=== PATIENT | male | born 1970 | race Caucasian/White ===

== ENCOUNTER 2017-03-04 12:20 | Emergency (ER) | payer SELFPAY ==
[~2017-03-04] VITALS: Ht 175.3 cm; Wt 91.8 kg
[2017-03-04 12:39] VITALS: TEMP 36.8; Ht 175.3 cm; Wt 91.8 kg
[2017-03-04] MEDS ORDERED: CEPH500C PO (14:02)
[2017-03-04] MEDS ORDERED: [UNRECOGNIZED DRUG - CODE] TOP (14:02)
--- NOTE | 2017-03-04 14:04 | EMERGENCY ROOM VISIT NOTE ---
ED Visit Note First contact with patient: 13:41 CHIEF COMPLAINT: Rash HISTORY OF PRESENT ILLNESS: This 46-year-old male patient presents to the emergency department ambulatory complaining of a rash to the scalp which started exclude weeks ago. The patient denies fever, chills, nausea, or loss of appetite. They deny any URI symptoms. The patient has tried steroid and fungal topicals and medicated shampoo but feels as though it is worsening. The patient states the rash is itchy and rates the discomfort as 0/10. No change in food, soap, detergents, or other environmental factors. No new medications. No weakness or numbness. The patient was told to see urgent care to get a referral to dermatology. He did this but dermatology cannot see him for months. He states that he notices some oozing from the lesions on the scalp. REVIEW OF SYSTEMS: A 6 system review of systems was completed with positives and pertinent negatives listed in the HPI. ALLERGIES: No known drug allergies MEDICATIONS: None PMH: None SOCIAL HISTORY: The patient is and lives locally PHYSICAL EXAM: Vital Signs: Reviewed Nurse's notes, vital signs stable. GENERAL : This is a 46-year-old male, in no acute distress, well-developed, well- nourished. SKIN: There are raised, dry, white, flaking lesions to the scalp. There is some discharge. There is no fluctuance. Capillary refill less than 2 seconds. EMERGENCY DEPARTMENT COURSE: The patient was seen and examined. He appears to have seborrheic capitis. The patient should follow-up with dermatology. He may have some secondary infection. He'll be placed on Keflex. He is advised to try baby oil at night. He will be given a prescription for clobetasol solution. He should return with any worsening symptoms. Current/Historical Medications Scheduled Cephalexin Monohydrate (Keflex), 500 MG PO TID Clobetasol Propionate (Cormax Scalp Application), 1 APPLN TOP DIRECTED Allergies Coded Allergies: No Known Allergies (Unverified , 03/04/17) Vital Signs Date Time Temp Pulse Resp B/P (MAP) Pulse Ox O2 Delivery O2 Flow Rate FiO2 03/04/17 14:09 66 116/84 97 Room Air 03/04/17 12:39 36.8 81 16 119/79 97 Room Air Departure Information Impression Primary Impression: Seborrhea capitis Dispostion Home / Self-Care Condition GOOD Prescriptions Cephalexin Monohydrate (Keflex) 500 Mg Cap 500 MG PO TID for 7 Days, #21 CAP Prov: Jessica Barker PA-C 03/04/17 Clobetasol Propionate (CORMAX SCALP APPLICATION) 0.05 % Samantha 1 APPLN TOP DIRECTED, #1 BTL 2 Refills Apply to the scalp after bathing as needed Prov: Jessica Barker PA-C 03/04/17 Referrals No Doctor, Assigned (PCP) Alina Lee MD Patient Instructions My [facility], Seborrheic Dermatitis Additional Instructions Use a mild shampoo such as Dove Apply baby oil liberally to the scalp at bedtime and leave on overnight. Wash in the morning with a mild shampoo. This will help to gently remove the scales. You may do this several times a week or as needed. Apply the clobetasol to the scalp after bathing as needed. Keflex as prescribed, until finished to treat potential secondary bacterial infection Follow-up with dermatology for definitive management Return with any worsening symptoms
[2017-03-04 14:09] VITALS: BP 116/84; PULSE 66; O2SAT 97
== END 2017-03-04 14:15 | disposition home or self-care (01) ==
LOC: C.EDB 12:22 → C.EDD 14:15
DX: L21.0 Seborrhea capitis (principal)

== ENCOUNTER 2017-06-21 19:28 | Emergency (ER) | payer OTHER ==
[~2017-06-21] VITALS: Ht 172.7 cm; Wt 91.2 kg
[~2017-06-21 19:28] MED LIST: [UNRECOGNIZED DRUG - CODE] TOP
[2017-06-21 19:39] VITALS: TEMP 37.1; Ht 172.7 cm; Wt 91.2 kg
[2017-06-21] MEDS ORDERED: SODIUM CHLORIDE 0.9% 1000ML 1,000 ML IV STA (19:53)
[2017-06-21] MEDS ORDERED: IBUP-1050 PO (20:16)
[2017-06-21 20:24] LABS: BASO % 0.1 %; BASO ABS # 0.01 K/uL (0-0.2); EOS % 1.9 %; EOS ABS # 0.19 K/uL (0-0.5); HEMOGLOBIN 16.5 g/dL (14.0-18.0); IG# 0.03 K/uL (0.00-0.02); LYMPH % 16.8 %; LYMPH ABS # 1.64 K/uL (1.2-3.4); MEAN CELL VOLUME 91.5 fL (80-100); MEAN CORPUSCULAR HEMOGLOBIN 33.5 pg (25-34); MEAN CORPUSCULAR HGB CONC 36.7 g/dl (32-36); MEAN PLATELET VOLUME 9.1 fL (7.4-10.4); MONO % 7.9 %; MONO ABS # 0.77 K/uL (0.11-0.59); NEUT ABS # 7.14 K/uL (1.4-6.5); PLATELET COUNT 235 K/uL (130-400); RED CELL DISTRIBUTION WIDTH CV 12.5 % (11.5-14.5); RED CELL DISTRIBUTION WIDTH SD 42.2 fL (36.4-46.3); WHITE BLOOD COUNT 9.78 K/uL (4.8-10.8)
--- NOTE | 2017-06-21 20:28 | EMERGENCY ROOM VISIT NOTE ---
History Report prepared by Teddy: Juan Álvarez Under the Supervision of: Alpesh RodriguezO. First contact with patient: 19:44 Chief Complaint: ABDOMINAL PAIN Stated Complaint: LOWER ABDOMINAL PAIN R SIDE 5+HRS Nursing Triage Summary: Pt ambulatory to triage. Lower right abdominal pain since this morning. Denies N/V/D. History of Present Illness The patient is a 46 year old male who presents to the Emergency Room with complaints of constant right lower quadrant abdominal pain that started this morning. The patient states that the pain radiated into his groin and testicle, and he had some back pain. He reports that his urine has a more foul odor than usual. The patient notes that 45 minutes ago he took 2 ibuprofen, and this has relieved some of his pain. He states that he has never had pain like this in the past, and he never had kidney stones. The patient denies any history of an appendectomy, and he does not take any medications daily. He states that he drinks alcohol occasionally, and he does not use any tobacco. The patient has a history of mole removals, though he does not have any other medical history. He additionally notes that he has been moving around heavy stuff a lot recently. Source of History: patient Onset: this morning Position: abdomen (RLQ) Timing: constant Modifying Factors (Relieving): ibuprofen Associated Symptoms: + back pain Note: Associated symptoms: groin and testicle pain. Review of Systems See HPI for pertinent positives & negatives. A total of 10 systems reviewed and were otherwise negative. Past Medical & Surgical Surgical Problems: (1) History of removal of nevus Family History Cancer Diabetes mellitus Heart disease Hypertension Social History Smoking Status: Never Smoker Marital Status: Housing Status: lives with family Occupation Status: retired Current/Historical Medications Scheduled PRN Ibuprofen (Advil), 400 MG PO Q6 PRN for Pain Allergies Coded Allergies: No Known Allergies (Unverified , 03/04/17) Physical Exam Vital Signs Date Time Temp Pulse Resp B/P (MAP) Pulse Ox O2 Delivery O2 Flow Rate FiO2 06/21/17 21:41 85 18 99/64 98 06/21/17 20:05 84 06/21/17 19:39 37.1 93 16 117/66 97 Room Air Physical Exam GENERAL: Patient is awake, alert, and in no acute distress. Patient is resting comfortably and showing no signs of anxiety EYES: The conjunctivae are clear. The pupils are round and reactive. EARS, NOSE, MOUTH AND THROAT: The nose is without any evidence of any deformity. Mucous membranes are moist tongue is midline NECK: The neck is nontender and supple. RESPIRATORY: Normal respiratory effort is noted there is no evidence of wheezing rhonchi or rales CARDIOVASCULAR: Regular rate and rhythm noted there no murmurs rubs or gallops normal S1 normal S2 GASTROINTESTINAL: The abdomen is mildly distended but soft. Right lower quadrant tenderness to palpation. No guarding or rigidity. BACK: No midline tenderness or or step-off noted range of motion in flexion extension as well as rotation no signs of muscle spasm noted MUSCULOSKELETAL/EXTREMITIES: There is no evidence of gross deformity full range of motion is noted in the hips and shoulders SKIN: There is no obvious evidence of any rash. There are no petechiae, pallor or cyanosis noted. NEUROLOGIC: Patient is awake alert and oriented x3 Medical Decision & Procedures ER Provider Diagnostic Interpretation: Radiology results as stated below per my review and radiologist interpretation: ABDOMEN AND PELVIS CT WITHOUT CONTRAST CT DOSE: 563.21 mGy.cm HISTORY: Acute right-sided flank pain right flank pain TECHNIQUE: Multiaxial CT images of the abdomen and pelvis were performed without contrast. A dose lowering technique was utilized adhering to the principles of ALARA. COMPARISON STUDY: None. FINDINGS: Lung bases are clear. No pneumatosis or pneumoperitoneum. The imaged inferior cardiac chambers are unremarkable. Gallbladder is contracted. The liver, spleen, pancreas and adrenal glands are within normal limits. Kidneys, ureters and urinary bladder are within normal limits without calculi or obstructive uropathy identified. The aorta is normal in course and caliber. No bulky adenopathy. There is no bowel obstruction or focal bowel wall thickening identified. Small duodenal diverticulum. Small fat filled left femoral hernia. Normal appendix. Soft tissues are unremarkable. Bones appear intact. IMPRESSION: 1. No acute intra-abdominal or intrapelvic abnormality identified, specifically no renal calculi or obstructive uropathy. 2. Normal appendix. 3. No bowel obstruction or focal bowel wall thickening. Electronically signed by: Zaki Souza M.D. 06/21/2017 9:07 PM Dictated Date/Time: 06/21/2017 9:04 PM Laboratory Results 06/21/17 19:55 Red Blood Count 4.92, Mean Corpuscular Volume 91.5, Mean Corpuscular Hemoglobin 33.5, Mean Corpuscular Hemoglobin Concent 36.7, Mean Platelet Volume 9.1, Neutrophils (%) (Auto) 73.0, Lymphocytes (%) (Auto) 16.8, Monocytes (%) (Auto) 7.9, Eosinophils (%) (Auto) 1.9, Basophils (%) (Auto) 0.1, Neutrophils # (Auto) 7.14, Lymphocytes # (Auto) 1.64, Monocytes # (Auto) 0.77, Eosinophils # (Auto) 0.19, Basophils # (Auto) 0.01 06/21/17 19:55 Test 06/21/17 19:55 White Blood Count 9.78 K/uL (4.8-10.8) Red Blood Count 4.92 M/uL (4.7-6.1) Hemoglobin 16.5 g/dL (14.0-18.0) Hematocrit 45.0 % (42-52) Mean Corpuscular Volume 91.5 fL (80-100) Mean Corpuscular Hemoglobin 33.5 pg (25-34) Mean Corpuscular Hemoglobin Concent 36.7 g/dl (32-36) Platelet Count 235 K/uL (130-400) Mean Platelet Volume 9.1 fL (7.4-10.4) Neutrophils (%) (Auto) 73.0 % Lymphocytes (%) (Auto) 16.8 % Monocytes (%) (Auto) 7.9 % Eosinophils (%) (Auto) 1.9 % Basophils (%) (Auto) 0.1 % Neutrophils # (Auto) 7.14 K/uL (1.4-6.5) Lymphocytes # (Auto) 1.64 K/uL (1.2-3.4) Monocytes # (Auto) 0.77 K/uL (0.11-0.59) Eosinophils # (Auto) 0.19 K/uL (0-0.5) Basophils # (Auto) 0.01 K/uL (0-0.2) RDW Standard Deviation 42.2 fL (36.4-46.3) RDW Coefficient of Variation 12.5 % (11.5-14.5) Immature Granulocyte % (Auto) 0.3 % Immature Granulocyte # (Auto) 0.03 K/uL (0.00-0.02) Urine Color YELLOW Urine Appearance CLEAR (CLEAR) Urine pH 5.5 (4.5-7.5) Urine Specific [place] 1.034 (1.000-1.030) Urine Protein NEG (NEG) Urine Glucose (UA) NEG (NEG) Urine Ketones TRACE (NEG) Urine Occult Blood NEG (NEG) Urine Nitrite NEG (NEG) Urine Bilirubin NEG (NEG) Urine Urobilinogen NEG (NEG) Urine Leukocyte Esterase NEG (NEG) Anion Gap 6.0 mmol/L (3-11) Est Creatinine Clear Calc Drug Dose 77.8 ml/min Estimated GFR () 75.8 Estimated GFR (Non- 65.4 BUN/Creatinine Ratio 15.2 (10-20) Calcium Level 9.0 mg/dl (8.5-10.1) Total Bilirubin 0.6 mg/dl (0.2-1) Direct Bilirubin mg/dl (0-0.2) Aspartate Amino Transf (AST/SGOT) 23 U/L (15-37) Alanine Aminotransferase (ALT/SGPT) 31 U/L (12-78) Alkaline Phosphatase 74 U/L (45-117) Total Protein 8.2 gm/dl (6.4-8.2) Albumin 4.2 gm/dl (3.4-5.0) Lipase 138 U/L (73-393) Chemistry Specimen Hemolysis Laboratory results per my review. Medications Administered Medications (Trade) Dose Ordered Sig/Milly Route Start Time Stop Time Status Last Admin Dose Admin Sodium Chloride 1,000 ml @ 999 mls/hr Q1H1M STAT IV 06/21/17 19:53 06/21/17 20:53 DC 06/21/17 19:53 999 MLS/HR ED Course 1943: The patient was evaluated in room C2. A complete history and physical examination were performed. 1952: NSS 1,000 ml @ 999 mls/hr IV 2119: Upon reevaluation, the patient is doing well. I discussed the results and treatment plan with him. He verbalized agreement of the treatment plan. He was discharged home. Medical Decision Differential diagnosis: Etiologies such as appendicitis, diverticulitis, PUD, biliary pathology, UTI, pancreatitis, obstruction, mesenteric ischemia, aortic pathology, infections, inflammatory bowel disease, renal colic, as well as others were entertained. Nursing notes reviewed. The patient is a 46-year-old male who presented to the emergency department for an evaluation of right lower quadrant and right flank pain. Initially I thought the patient's history and physical exam were consistent with renal colic. The patient was treated with IV fluids in the emergency department. He did not have an acute surgical abdomen on physical exam. I discussed the patient's laboratory and radiographic studies with him. He was encouraged to rest and avoid any strenuous activity. I also encouraged him to drink plenty clear liquids and continue using Motrin and Tylenol for pain. I also encouraged him to return to the emergency Department immediately if symptoms change worsen or the need arises. Medication Reconcilliation Current Medication List: was personally reviewed by me Blood Pressure Screening Patient's blood pressure: Normal blood pressure Impression Primary Impression: Right lower quadrant abdominal pain Scribe Attestation The scribe's documentation has been prepared under my direction and personally reviewed by me in its entirety. I confirm that the note above accurately reflects all work, treatment, procedures, and medical decision making performed by me. Departure Information Dispostion Home / Self-Care Referrals No Doctor, Assigned (PCP) Forms Call Back Authorization, HOME CARE DOCUMENTATION FORM, IMPORTANT VISIT INFORMATION Patient Instructions ED Abdominal Pain Unkn Cause Male, My [facility] Additional Instructions Continue using Tylenol as directed for pain. Drink plenty clear liquids. Continue all medications as prescribed. Call your family to schedule a follow-up appointment. Return to the emergency department immediately if symptoms change worsen or the need arises.
[2017-06-21 20:55] LABS: CREATININE 1.3 mg/dl (0.60-1.40)
[2017-06-21 20:56] LABS: ALBUMIN 4.2 gm/dl (3.4-5.0); POTASSIUM 3.7 mmol/L (3.5-5.1); TOTAL PROTEIN 8.2 gm/dl (6.4-8.2)
--- NOTE | 2017-06-21 21:09 | DIAGNOSTIC IMAGING REPORT ---
ABDOMEN AND PELVIS CT WITHOUT CONTRAST CT DOSE: 563.21 mGy.cm HISTORY: Acute right-sided flank pain right flank pain TECHNIQUE: Multiaxial CT images of the abdomen and pelvis were performed without contrast. A dose lowering technique was utilized adhering to the principles of ALARA. COMPARISON STUDY: None. FINDINGS: Lung bases are clear. No pneumatosis or pneumoperitoneum. The imaged inferior cardiac chambers are unremarkable. Gallbladder is contracted. The liver, spleen, pancreas and adrenal glands are within normal limits. Kidneys, ureters and urinary bladder are within normal limits without calculi or obstructive uropathy identified. The aorta is normal in course and caliber. No bulky adenopathy. There is no bowel obstruction or focal bowel wall thickening identified. Small duodenal diverticulum. Small fat filled left femoral hernia. Normal appendix. Soft tissues are unremarkable. Bones appear intact. IMPRESSION: 1. No acute intra-abdominal or intrapelvic abnormality identified, specifically no renal calculi or obstructive uropathy. 2. Normal appendix. 3. No bowel obstruction or focal bowel wall thickening. Electronically signed by: Zaki Souza M.D. 06/21/2017 9:07 PM Dictated Date/Time: 06/21/2017 9:04 PM
[2017-06-21 21:41] VITALS: BP 99/64; PULSE 85; O2SAT 98
== END 2017-06-21 21:42 | disposition home or self-care (01) ==
LOC: C.EDB 19:29 → C.EDC 21:42
DX: R10.31 Right lower quadrant pain (principal); Z83.3 Family history of diabetes mellitus; Z82.49 Family history of ischemic heart disease and other diseases of the circulatory system